=== PATIENT | male | born 1985 | race Caucasian/White ===

== ENCOUNTER 2018-03-31 09:49 | Emergency (ER) | payer SELFPAY ==
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
== END 2018-03-31 10:32 | disposition home or self-care (01) ==
LOC: ER 09:49
DX: K04.7 Periapical abscess without sinus (principal); F17.210 Nicotine dependence, cigarettes, uncomplicated
CPT/HCPCS: 99282

== ENCOUNTER 2019-08-14 13:36 | Emergency (ER) | payer SELFPAY ==
[2019-08-14] MEDS ORDERED: 0.9% SODIUM CHLORIDE 250ML BAG IV ONE (13:52)
[2019-08-14] MEDS ORDERED: KETOROLAC 30 MG/ML VIAL IVP ONE (13:52)
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
[2019-08-14 14:10] LABS: URINE APPEARANCE CLEAR; URINE BILIRUBIN NEGATIVE (NEGATIVE); URINE BLOOD NEGATIVE (NEGATIVE); URINE COLOR YELLOW; URINE GLUCOSE (UA) NEGATIVE (NEGATIVE); URINE KETONE NEGATIVE (NEGATIVE); URINE LEUKOCYTE ESTERASE NEGATIVE (NEGATIVE); URINE NITRITE NEGATIVE (NEGATIVE); URINE PROTEIN NEGATIVE (NEGATIVE); URINE UROBILINOGEN 0.2 E.U./dL (0.20 - 1.00)
[2019-08-14 14:11] LABS: ABSOLUTE NEUTROPHIL COUNT 7.53; BASO % 0.5 % (0-6); EOS % 3.3 % (0-6); GRAN % 56.6 % (47-80); HEMATOCRIT 46.1 % (42.0-52.0); HEMOGLOBIN 15.7 gm/dl (14.0-18.0); LYMPH % 32.2 % (16-45); MEAN CORPUSCULAR HEMOGLOBIN 29.3 pg (27-33); MEAN CORPUSCULAR HGB CONC 34.1 g/dl (32-36); MEAN PLATELET VOLUME 9.6 fl (7.4-10.4); MONO % 7.4 % (0-9); PLATELET COUNT 269 K/uL (130-400); RED BLOOD COUNT 5.36 M/uL (4.40-5.70); RED CELL DISTRIBUTION WIDTH 12.9 % (11.5-14.5); WHITE BLOOD COUNT W/O DIFF 13.3 K/uL (4.2-12.2)
[2019-08-14 14:21] LABS: BLOOD UREA NITROGEN 13 mg/dL (6-20)
[2019-08-14 14:22] LABS: CREATININE 0.9 mg/dL (0.7-1.2); EST GLOMERULAR FILTRATION RATE > 60 mL/min; TOTAL PROTEIN 7.3 g/dL (6.6-8.7)
[2019-08-14 14:24] LABS: GLUCOSE,RANDOM 102 mg/dL (74-109)
[2019-08-14 14:27] LABS: ALB/GLOB RATIO 1.7 (1.1-1.8); ALBUMIN 4.6 g/dL (4.0-5.0); ALKALINE PHOSPHATASE 76 U/L (40-129); ALT/SGPT 21 U/L (<41); AST/SGOT 13 U/L (10.0-50.0)
--- NOTE | 2019-08-14 14:32 | RADIOLOGY REPORT ---
EXAMINATION: Abdomen Single View EXAM DATE: 08/14/2019 2:20 PM TECHNIQUE: Upright AP radiograph of the abdomen INDICATION: Right upper quadrant abdominal pain for 2 days COMPARISON: None ENCOUNTER: Initial FINDINGS: Bowel: Moderately extensive colonic stool. No dilated loops of bowel. Abnormal Calcifications: Small calcified phlebolith in right pelvis. Both kidneys are partially obscu red by overlying bowel gas and colonic stool. Bones: Partial sacralization of L5. Other Findings: No calcified gallstones demonstrated. IMPRESSION: No acute process in the abdomen evident on single view radiograph. Dictated by: Evan Thomas MD on 08/14/2019 2:26 PM. .
[2019-08-14] MEDS ORDERED: MAGNESIUM CITRATE 296 ML BTL PO ONE (14:59)
== END 2019-08-14 15:09 | disposition home or self-care (01) ==
LOC: ER 13:36
DX: R10.11 Right upper quadrant pain (principal); K59.00 Constipation, unspecified; F17.210 Nicotine dependence, cigarettes, uncomplicated
CPT/HCPCS: 74018; 80053; 81003; 85025; 96374; 99284; J1885

== ENCOUNTER 2019-08-15 08:07 | Day surgery (SDC) | payer SELFPAY ==
--- NOTE | 2019-08-15 09:32 | ULTRASOUND REPORT ---
EXAMINATION: Complete Abdomen Ultrasound EXAM DATE: 08/15/2019 9:23 AM TECHNIQUE: Complete ultrasound of the abdomen was performed. INDICATION: RUQ abd pain COMPARISON: None FINDINGS: Liver: Mildly enlarged measuring 18 cm length. No focal lesion. Echotexture appears to be within nor mal limits. Gallbladder: Shadowing echogenic foci compatible with cholelithiasis. There is also echogenic debris throughout the gallbladder. Most likely prominence of intraluminal sludge in combination with a larg e gallstone at the neck measuring up to 3 cm. There is diffuse gallbladder wall thickening measuring 5 mm. Positive sonographic Bermudez sign. Constellation of findings is very suggestive of acute cholecy stitis. Common Bile Duct: The common duct measures 4 mm. There is no intrahepatic or extrahepatic bile duct dilatation. Pancreas: The head and body of the pancreas are normal. The tail is obscured by bowel gas. Spleen: The spleen size and echogenicity is normal. Kidneys: At the anterior aspect of the right kidney there is a complex cyst with septations at the i nterpolar level which measures 2.2 x 1.7 x 1.8 cm. The right kidney measures 12.0 cm length. Left kid danielito measures 13.0 cm length. No hydronephrosis. Abdominal Aorta: There is no abdominal aortic aneurysm. Inferior Vena Cava: The intrahepatic IVC is normal. Other Findings: No ascites. Vascular imaging: Not performed. The orange significant findings protocol was initiated at 08/15/2019 9:30 AM. See impression. IMPRESSION: 1. Abnormal gallbladder features as detailed above very suggestive of acute cholecystitis. Please cor relate clinically. 2. Septated interpolar level right renal complex cyst. At least 6 month follow-up advised. 3. Mild hepatic enlargement. Dictated by: Wally Sanches DO on 08/15/2019 9:25 AM. .
[2019-08-15 10:08] LABS: ABSOLUTE NEUTROPHIL COUNT 7.06; HEMATOCRIT 45.2 % (42.0-52.0); HEMOGLOBIN 15.2 gm/dl (14.0-18.0); MEAN CELL VOLUME 85.9 fl (81-97); MEAN CORPUSCULAR HEMOGLOBIN 28.9 pg (27-33); MEAN CORPUSCULAR HGB CONC 33.6 g/dl (32-36); MEAN PLATELET VOLUME 9.7 fl (7.4-10.4); PLATELET COUNT 246 K/uL (130-400); RED BLOOD COUNT 5.26 M/uL (4.40-5.70); RED CELL DISTRIBUTION WIDTH 12.8 % (11.5-14.5)
[2019-08-15 10:14] LABS: BLOOD UREA NITROGEN 12 mg/dL (6-20); CREATININE 0.9 mg/dL (0.7-1.2); EST GLOMERULAR FILTRATION RATE > 60 mL/min
[2019-08-15 10:17] LABS: GLUCOSE,RANDOM 99 mg/dL (74-109)
[2019-08-15 10:18] LABS: PLATELET ESTIMATE NORMAL (NORMAL)
[2019-08-15 10:19] LABS: ALT/SGPT 19 U/L (<41); AST/SGOT 12 U/L (10.0-50.0)
[2019-08-15 10:21] LABS: ALB/GLOB RATIO 1.6 (1.1-1.8); ALBUMIN 4.3 g/dL (4.0-5.0); ALKALINE PHOSPHATASE 75 U/L (40-129)
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
[2019-08-15] MEDS ORDERED: HYDROMORPHONE HCL 2 MG/ML VIAL IVP ONE (10:56)
[2019-08-15] MEDS ORDERED: ONDANSETRON HCL IV 4 MG/2 ML VIAL IVP ONE ×2 (10:56→13:26)
[2019-08-15] MEDS ORDERED: ERTAPENEM SODIUM 1 G in 0.9 % SODIUM CHLORIDE 100ML 100 ML IVPB ONE (12:32)
[2019-08-15] MEDS ORDERED: RINGERS SOLUTION,LACTATED 1,000 ML IV PRN (12:32)
[2019-08-15] MEDS ORDERED: RINGERS SOLUTION,LACTATED 1,000 ML IV ONE ×2 (13:05→16:00)
[2019-08-15] MEDS ORDERED: SUCCINYLCHOLINE 20 MG/ML 10ML IVP ONE (13:26)
[2019-08-15] MEDS ORDERED: PROPOFOL 10 MG/ML VIAL IV ONE (13:26)
[2019-08-15] MEDS ORDERED: GLYCOPYRROLATE 0.2 MG/ML ML IV ONE (13:26)
[2019-08-15] MEDS ORDERED: KETOROLAC 30 MG/ML VIAL IVP ONE (13:26)
[2019-08-15] MEDS ORDERED: NEOSTIGMINE 1 MG/1 ML,10ML VIAL IV ONE (13:26)
[2019-08-15] MEDS ORDERED: MIDAZOLAM HCL 2MG/2ML VIAL IV ONE (13:26)
[2019-08-15] MEDS ORDERED: SEVOFLURANE 250 ML INH ONE (13:26)
[2019-08-15] MEDS ORDERED: FENTANYL PF 100MCG/2ML VIAL IV ONE (13:26)
[2019-08-15] MEDS ORDERED: ROCURONIUM BROMIDE 50MG/5ML VIAL IV ONE (13:26)
[2019-08-15] MEDS ORDERED: LIDOCAINE 2% MDV (20MG/ML) 20ML VIAL IV ONE (13:26)
[2019-08-15] MEDS ORDERED: FAMOTIDINE 20MG TABLET PO ONE (13:30)
[2019-08-15] MEDS ORDERED: METOCLOPRAMIDE 10 MG TABLET PO ONE (13:30)
[2019-08-15] MEDS ORDERED: MECLIZINE 25 MG TABLET PO ONE (13:30)
[2019-08-15] MEDS ORDERED: ACETAMINOPHEN 1,000 MG/100 ML BTL IVPB ONE (14:00)
[2019-08-15] MEDS ORDERED: BUPIVACAINE 0.25% MPF 30ML VIAL SQ ONE ×2 (15:51)
[2019-08-15] MEDS ORDERED: HYDROCODONE/APAP 5/325MG TABLET PO ONE (17:07)
--- NOTE | 2019-08-16 12:31 | Operative Note ---
DATE OF SURGERY: 08/15/2019 PREOPERATIVE DIAGNOSIS: Acute cholecystitis. POSTOPERATIVE DIAGNOSIS: Acute cholecystitis. OPERATION: Laparoscopic cholecystectomy. SURGEON: Naveed Banerjee DO ANESTHESIA: General. COMPLICATIONS: None. DISPOSITION: To recovery. BRIEF HISTORY: The patient is a pleasant 34-year-old male who presents with signs and symptoms on imaging consistent with acute cholecystitis. Risks, benefits, and alternatives were described for laparoscopic cholecystectomy and informed consent was obtained. DESCRIPTION OF PROCEDURE: After informed consent was obtained, the patient was brought back to the operating room suite and place in supine position on the operating table. Anesthesia was administered the Anesthesia Department. The patient's abdomen was prepped and draped in the usual sterile fashion. An infraumbilical 10 mm vertical incision was made. Dissection was made down to the anterior rectus fascia, which was incised, grasped, and raised anteriorly. Two stay sutures were placed. Posterior sheath was then incised. Ramana trocar was inserted into the abdomen. CO2 gas was hooked up. Abdomen was insufflated to 15 mmHg. Attention turned to the epigastric region, were a 5 mm trocar was placed under direct visualization simulating the right upper quadrant. Two further 5 mm trocars were placed under direct visualization. Grasper was inserted into the abdomen. The gallbladder was grasped at the fundus, retracted to patient's right shoulder. It was also grasped at Tom's pouch and retracted laterally. Dissection began at triangle of Calot until critical view was obtained. Critical view was obtained revealing the cystic duct and cystic artery were seen coursing directly into the gallbladder. The cystic artery was clipped once proximally and divided distally using the DICK Harmonic device and hemostasis was noted. The cystic duct was triply clipped twice proximally and distally and divided in between. The gallbladder was removed from the gallbladder fossa using the DICK Harmonic device. There was no spill to bowel during this process. Hemostasis was noted. The gallbladder was then placed into an EndoCatch bag and removed through the umbilical port site without difficulty. All trocars then removed. All CO2 gas was allowed to escape the abdomen. Two [id number] sutures of 0 Vicryl were placed in the fascia at the umbilical port site. All skin incisions were approximated using 4-0 Monocryl in a subcuticular fashion. Steri-Strips and sterile dressings were applied. The patient tolerated the procedure very well and was transferred to the recovery room in stable condition. TRI
== END 2019-08-15 17:15 | disposition home or self-care (01) ==
LOC: ER 08:07 → EDSTATUS 11:46 → ER 13:22 → SUR 13:25
PROVIDERS: ATTEND Surgery
DX: K80.63 Calculus of gallbladder and bile duct with acute cholecystitis with obstruction (principal); I10 Essential (primary) hypertension; F17.210 Nicotine dependence, cigarettes, uncomplicated
CPT/HCPCS: 47562; 00790; 99285 ×2; 96365; 96375; 80053; 85027; 76700; J1335; J1885; J2405; J3010; J1170; J0330; J2710; J7120